=== PATIENT | male | born 1950 | race Caucasian/White ===

== ENCOUNTER 2025-04-05 10:32 | Outpatient (CLI) | payer OTHER, SELFPAY ==
--- NOTE | 2025-04-05 10:38 | MR_ITS ---
WS: [id number] MRI RIGHT SHOULDER HISTORY: R SHOULDER PAIN RESTRICTED MOVEMENT WITH POPPING COMPARISON: None available. TECHNIQUE: Multiplanar sequences of the shoulder joint are submitted. Moderate AC joint arthropathy. There is a small amount of fluid in the central ligament. Small osteophytes of the distal clavicle. There is mild encroachment upon the supraspinatus muscle. Small amount of fluid in the subacromial and subdeltoid bursa. Enthesopathy from the distal acromion with moderate subacromial impingement upon the distal supraspinatus. No os acromion. Normal position of the biceps tendon. Mild narrowing of the glenohumeral joint. No fractures or marrow edema in the humeral head or glenoid. No rotator cuff muscle atrophy or edema. There is soft tissue contusion and edema involving the distal supraspinatus muscle and the closely associated biceps tendon through the rotator cuff interval. Coracohumeral ligament appears intact. Small tear involving the articular surface of the distal supraspinatus tendon. Deep to the tear is a very tiny, 5 mm osteochondral lesion in the humeral head. Additional tendinopathy in the supraspinatus tendon in direct contact with the subacromial impingement. Mild tendinopathy in the distal subscapularis tendon. Infraspinatus tendon is intact. MR/MR shoulder RT wo con* [id number] IMPRESSION: 1. Moderate AC joint arthritis. 2. Moderate subacromial impingement upon the distal supraspinatus tendon. 3. Tendinopathy in the supraspinatus tendon associated with the subacromial im pingement. 4. Tiny distal articular surface tear of the supraspinatus tendon with an asso ciated osteochondral lesion. 5. Biceps tendon remains in the bicipital groove. The biceps tendon extending through the rotator cuff interval with increased signal and poorly visualized. There is adjacent soft tissue injury involving the supraspinatus muscle. This i s probably the result of prior trauma. 6. Tendinopathy distal subscapularis tendon.
== END 2025-04-05 10:33 | disposition home or self-care (01) ==
LOC: RAD 10:34
PROVIDERS: PCP Family Medicine; Visit Provider Nurse Practitioner Family
DX: M25.511 Pain in right shoulder (principal)
CPT/HCPCS: 73221

== ENCOUNTER → 2025-04-27 07:46 | Outpatient (BNVA) | payer MEDICARE, OTHER, SELFPAY | PROVIDERS: Visit Provider Student in an Organized Health Care Education/Training Program | DX: Z12.11 Encounter for screening for malignant neoplasm of colon (principal); R03.0 Elevated blood-pressure reading, without diagnosis of hypertension | CPT/HCPCS: 99204 ==

== ENCOUNTER 2025-05-02 05:54 | Day surgery (SDC) | payer MEDICARE, OTHER, SELFPAY ==
[2025-05-02 06:09] VITALS: BP 138/81; PULSE 86; RESP 18; TEMP 36.1; O2SAT 97; BMI 26.0
--- NOTE | 2025-05-02 06:43 | ANES.PREANE2 ---
Pre-Anesthetic Assessment Height/Weight: Height 1.83 m Weight 87.09 kg Temp Pulse Resp BP Pulse Ox O2 Del Method 97 F L 86 18 138/81 97 Room Air 05/02/25 06:09 05/02/25 06:09 05/02/25 06:09 05/02/25 06:09 05/02/25 06:09 05/02/25 06:09 Preop Diagnosis: screening Operation Date: 05/02/25 07:00 Proposed Procedures p Colonoscopy [id number] [id number] Z12.11(Not Applicable) - Terrance Garcia MD Familial anesthetic complications: none Was Beta Domi taken within 24 hours: N/A Was Clonidine taken within 24 hours: N/A Last intake: Intake Last Liquid Date 05/01/25 Last Liquid Time 21:00 Last Solid Date 04/30/25 Last Solid Time 16:00 Social No alcohol and No tobacco Exam alert, oriented x 3, clear to auscultation bilaterally and regular rate & rhythm Airway Submandibular: within normal limits Cervical ROM: within normal limits Mallampati: Class II Dentition: full History/ROS No significant history except as noted and No significant complaints Pulmonary None reported CV/HEM None reported None reported Hepatic None reported GI None reported Metabolic Hyperlipidemia Musc/skel None reported Gout Neuropsych None reported Anesthetic Plan ASA status: 2 Anesthesia: MAC Risk of > 500 ml blood loss (7ml/kg in children): No Medications/Allergies Home Medications ?Medication ?Instructions ?Recorded ?Confirmed ?Last Taken ?Type atorvastatin 10 mg tablet (Lipitor) 10 mg PO DAILY 04/25/25 04/27/25 05/01/25 History febuxostat 40 mg tablet (Uloric) 40 mg PO DAILY 04/25/25 04/27/25 05/01/25 History ascorbic acid (vitamin C) 1,000 mg 1,000 mg PO DAILY 04/27/25 04/27/25 05/01/25 History tablet (Vitamin C) ibuprofen 800 mg tablet 800 mg PO TID 04/27/25 04/27/25 05/01/25 History multivitamin 1 tab PO DAILY 04/27/25 04/27/25 05/01/25 History omega 2-rrk-omi-fish oil 1,000 mg 1 cap PO DAILY 04/27/25 04/27/25 05/01/25 History (120 mg-180 mg) capsule (Fish Oil) vitamin E 400 unit tablet 400 mg PO DAILY 04/27/25 04/27/25 05/01/25 History Allergies Allergy/AdvReac Type Severity Reaction Status Date / Time Tetanus Vaccines and Toxoid Allergy ALGY-Hives Verified 04/27/25 07:55 Current Medications Generic Name Dose Route Start Last Admin Trade Name Freq PRN Reason Stop Dose Admin Sodium Chloride 1,000 mls @ 15 mls/hr 05/02/25 06:09 05/02/25 06:13 Sodium Chloride 0.9% IV 05/03/25 06:08 15 mls/hr .Q24H PRN Administration COLONOSCOPY FLUIDS PFSH Anesthesia Social History Smoking and tobacco/nicotine status: never used tobacco/nicotine
--- NOTE | 2025-05-02 06:59 | W.PM.OPSUD ---
Surgery/Procedure H&P Update DATE OF PROCEDURE: May 02, 2025 DATE H&P PERFORMED: 04/27/25 H&P UPDATE INFORMATION: I have reviewed H&P completed within last 30 days, I have examined patient prior to procedure, No changes to prior documentation and Risks and benefits of the procedure reviewed PREOP DIAGNOSIS: screening PLANNED PROCEDURE: Operation Date: 05/02/25 07:00 Proposed Procedures p Colonoscopy 25957 G0121 Z12.11(Not Applicable) - Terrance Garcia MD
[2025-05-02 07:27] VITALS: BP 91/60; PULSE 72; RESP 18; TEMP 36.3; O2SAT 94
[2025-05-02 07:33] VITALS: BP 94/66; PULSE 74; RESP 18; O2SAT 94
[2025-05-02 07:42] VITALS: BP 115/69; PULSE 63; RESP 18; O2SAT 94
--- NOTE | 2025-05-02 07:54 | ANE.PACU2 ---
Inpatient post-anesthesia follow up: Airway intact: Yes Vital signs: Temperature 97.4 F Pulse Rate 63 Respiratory Rate 18 Blood Pressure 115/69 Pulse Oximetry 94 Oxygen Delivery Me thod Room Air Oxygen Flow Rate Fraction of Inspir ed Oxygen Hydration adequate: Yes Nausea and vomiting: No Pain level: 1 Mental status: Baseline
== END 2025-05-02 07:54 | disposition home or self-care (01) ==
PROVIDERS: PCP Family Medicine; Visit Provider Student in an Organized Health Care Education/Training Program
PROC: 0DJD8ZZ Inspection of Lower Intestinal Tract, Via Natural or Artificial Opening Endoscopic (ICD-10-PCS; CPT 45378; principal; 2025-05-02 07:00)
DX: Z12.11 Encounter for screening for malignant neoplasm of colon (principal); K57.30 Diverticulosis of large intestine without perforation or abscess without bleeding; D12.2 Benign neoplasm of ascending colon; E78.5 Hyperlipidemia, unspecified
CPT/HCPCS: 45385; 88305; J2704; J7030

== ENCOUNTER 2025-05-15 07:26 | Outpatient (RCR) | payer MEDICARE, OTHER, SELFPAY | END 2025-05-26 23:59 | disposition home or self-care (01) | LOC: SPT 07:26 | PROVIDERS: PCP Family Medicine; Visit Provider Orthopaedic Surgery | DX: M25.511 Pain in right shoulder (principal) | CPT/HCPCS: 97110; 97161 ==

== ENCOUNTER → 2025-05-22 08:39 | Outpatient (BNVA) | payer MEDICARE, OTHER, SELFPAY | PROVIDERS: PCP Family Medicine; Visit Provider Orthopaedic Surgery | DX: M19.011 Primary osteoarthritis, right shoulder (principal); M75.41 Impingement syndrome of right shoulder; M67.813 Other specified disorders of tendon, right shoulder | CPT/HCPCS: 99213 ==

== ENCOUNTER → 2025-05-25 13:24 | Outpatient (BNVA) | payer MEDICARE, OTHER, SELFPAY | PROVIDERS: PCP Family Medicine; Visit Provider Student in an Organized Health Care Education/Training Program | DX: Z09 Encounter for follow-up examination after completed treatment for conditions other than malignant neoplasm (principal) | CPT/HCPCS: 99213 ==

== ENCOUNTER 2025-06-01 05:44 | Day surgery (SDC) | payer MEDICARE, OTHER, SELFPAY ==
[2025-06-01] VITALS (7 sets, daily range): BP systolic 114–147; BP diastolic 77–106; PULSE 64–70; RESP 15–18; TEMP 36.1–36.2; O2SAT 93–100; BMI 25.7
--- NOTE | 2025-06-01 06:17 | ANES.PREANE2 ---
Pre-Anesthetic Assessment Height/Weight: Height 6 ft Weight 190 lb Temp Pulse Resp BP Pulse Ox O2 Del Method 97.2 F L 65 18 147/106 93 Room Air 06/01/25 06:06 06/01/25 06:06 06/01/25 06:06 06/01/25 06:06 06/01/25 06:06 06/01/25 06:06 Preop Diagnosis: Right shoulder pain Operation Date: 06/01/25 07:00 Proposed Procedures p RIGHT Shoulder Arthroscopy(Right) - Gabino Angela MD s Open Rotator Cuff Repair Shoulder(Right) - Gabino Angela MD Was Beta Domi taken within 24 hours: N/A Was Clonidine taken within 24 hours: N/A Social No alcohol and No tobacco Exam alert, oriented x 3, clear to auscultation bilaterally and regular rate & rhythm Airway Submandibular: within normal limits Cervical ROM: within normal limits Mallampati: Class II Dentition: full Anesthetic Plan ASA status: 2 Anesthesia: General and Regional (specify below) Other: No prior issues with anesthesia NPO since yesterday evening Denies any cardiac issues, preop BP 147/106 No pulmonary problems Active individual METs greater than 4 Plan for GETA with peripheral nerve block Medications/Allergies Home Medications ?Medication ?Instructions ?Recorded ?Confirmed ?Last Taken ?Type atorvastatin 10 mg tablet (Lipitor) 10 mg PO DAILY 04/25/25 05/31/25 05/30/25 History febuxostat 40 mg tablet (Uloric) 40 mg PO DAILY 04/25/25 05/31/25 05/30/25 History ascorbic acid (vitamin C) 1,000 mg 1,000 mg PO DAILY 04/27/25 05/31/25 05/22/25 History tablet (Vitamin C) ibuprofen 800 mg tablet 800 mg PO TID 04/27/25 05/31/25 05/19/25 History multivitamin 1 tab PO DAILY 04/27/25 05/31/25 05/22/25 History omega 3-soc-gzy-fish oil 1,000 mg 1 cap PO DAILY 04/27/25 05/31/25 05/22/25 History (120 mg-180 mg) capsule (Fish Oil) vitamin E 400 unit tablet 400 mg PO DAILY 04/27/25 05/31/25 05/22/25 History Allergies Allergy/AdvReac Type Severity Reaction Status Date / Time Tetanus Vaccines and Toxoid Allergy ALGY-Hives Verified 05/31/25 14:24 [facility] Anesthesia Social History Smoking and tobacco/nicotine status: never used tobacco/nicotine
--- NOTE | 2025-06-01 06:52 | W.PM.OPSUD ---
Surgery/Procedure H&P Update DATE OF PROCEDURE: June 01, 2025 DATE H&P PERFORMED: 05/25/25 H&P UPDATE INFORMATION: I have reviewed H&P completed within last 30 days, I have examined patient prior to procedure and No changes to prior documentation PREOP DIAGNOSIS: Right shoulder pain with impingement, possible rotator cuff tear PLANNED PROCEDURE: Operation Date: 06/01/25 07:00 Proposed Procedures p RIGHT Shoulder Arthroscopy(Right) - Gabino Angela MD s Open Rotator Cuff Repair Shoulder(Right) - Gabino Angela MD
[2025-06-01] MEDS: ceFAZolin 2,000 mg SDV 2000 MG IVP (07:00)
--- NOTE | 2025-06-01 08:13 | ANES.PROC ---
Anesthesia Procedures Procedure/Date: 06/01/25 Right interscalene peripheral nerve block for postoperative pain control Nerve Block ^: Nerve Block 1: Main Anesthesia: other (Fentanyl 100 mcg) Time Out Performed: Yes Consent: requested by attending/covering physician and from patient Laterality: Right Nerve block location: interscalene Anesthesia monitors applied: pulse oximetry, EKG, BP cuff and oxygen Nerve block position: supine Anesthetic Used: ropivicaine 0.5% Amount of anesthesia used (mL): 30 Ultrasound used to: recognize landmarks Nerve Stimulator Used?: Yes Interscalene/Femoral BLK: other needle (pjunk 4inch) Injection: neg aspiration of heme Patient Tolerated Procedure: well Complications: none Additional Comments: Decadron 4 mg added to block
--- NOTE | 2025-06-01 09:08 | P.OP_ITS ---
Operative Report Date of procedure: June 01, 2025 Surgeon: Gabino Angela MD Procedure: Preoperative diagnosis: Internal derangement of the right shoulder Postoperative diagnosis: Torn anterior labrum with degenerative tearing superior labrum right shoulder, torn rotator cuff, impingement of the acromion, hypertrophic bursa, multiple adhesions Procedure: Diagnostic right shoulder arthroscopy with labral repair and debridement of the labrum, mini open rotator cuff repair with acromioplasty, bursectomy, lysis of adhesions Surgeon: Gabino Angela MD Stainless Steel Finisher: MILTON Mishra's assistance was necessary for positioning the patient, assistance during the procedure, wound closure, placement of the abduction pillow and sling Anesthesia: General With preoperative scalene block EBL: 50 cc Indications: Andrew is a 75-year-old white male was seen in the orthopedic clinic for debilitating right shoulder pain. He been having problems over the course of the last several months with increasing pain problems and difficulties with this. He had no specific injury. Subsequent MRI did demonstrate some changes of the supraspinatus tendon of his shoulder as well as impingement of the acromion and some AC joint degeneration. However at that time it did not appear that he needed surgical intervention. We attempted conservative measures for several months with no improvement. Subsequently he was offered to diagnostic shoulder arthroscopy with all indicated procedures. More likely needed decompression due to impingement of the acromion. Possible repair of the rotator cuff. All risk benefits treatment alternatives were discussed with him and he was agreeable to this at this time. Procedure: After obtaining consent patient had preoperative scalene block administered in preop holding area. Patient was then taken to the operating room placed in the op table supine position general anesthetic administered. Once good anesthesia achieved patient was placed up in a modified beachchair position on a regular surgical table. Shoulder bump was placed behind his right scapula to raise his shoulder off the table. Right shoulder and arm were prepped and draped usual fashion. After surgical timeout standard posterior portal was made #11 blade and camera cannulas placed within the glenohumeral joint line. Anterior working portal was also plated and inferior to the anterior clavicle. Evaluation the area found that there is a tear where the labrum needed approxi-1 cm in length just inferior to the biceps tendon. There is fraying and tearing along this anterior labrum as well as long superior labrum. All these areas were debrided down to stable cartilaginous base mechanical shaver. Subsequently to juggernaut 1.5 mm suture anchors were placed in the glenoid and the labrum was sutured back to its original insertion point. At this point it had been noted there was a small tear in the rotator cuff just lateral to the biceps hiatus. Biceps tendon was in good repair. Arthroscopy was abandoned at this point and mini open procedure was started. Longitudinal incision was made off the anterior lateral aspect of the acromion. Sharp dissected gone down subcutaneous tissues electrocautery used for hemostasis. Deltoid was removed from the anterior portion of the acromion with electrocautery. By digital palpation is found to be very tight and impinging upon the rotator cuff. Therefore using a microsagittal saw acromioplasty was undertaken and bone fragment removed without any difficulties. Adequate decompression was achieved. Hypertrophic bursa was in the area and had to be d ebrided with electrocautery. Digital palpation lysed many adhesions within the subacromial space. Small tear of the rotator cuff was identified at the level of the biceps tendon posteriorly about 1 cm. This area was freshened with a #15 blade. Subsequently single 2.9 juggernaut suture anchor was placed through drill hole at the footprint of the rotator cuff. Rotator cuff was repaired back with the double-armed sutures in a horizontal mattress suture fashion as well as some [id number] sutures. Once adequate repair had been achieved shoulders washed sterile rogation. Retractors were removed and deltoid is repaired with 0 Vicryl [id number] sutures. Subcutaneous was reapproximated 2-0 Vicryl interrupted sutures and skin was closed with running 3-0 Prolene sutures. Wounds are cleaned and dried with Xeroform gauze sterile gauze dressing ABDs adhesive tape. Patient placed in abduction pillow sling. Patient was awakened transferred cover in stable condition
--- NOTE | 2025-06-02 10:20 | ANE.PACU2 ---
Inpatient post-anesthesia follow up: Airway intact: Yes Vital signs: Temperature 97.0 F Pulse Rate 64 Respiratory Rate 17 Blood Pressure 129/82 Pulse Oximetry 95 Oxygen Delivery Me thod Room Air Oxygen Flow Rate Fraction of Inspir ed Oxygen Hydration adequate: Yes Nausea and vomiting: No Pain level: 1 Mental status: Baseline
== END 2025-06-01 10:20 | disposition home or self-care (01) ==
PROVIDERS: PCP Family Medicine; Visit Provider Orthopaedic Surgery
PROC: (CPT 29805; principal; 2025-06-01 07:00)
PROC: (CPT 23412; 2025-06-01 07:00)
PROC: (CPT 29807; 2025-06-01 07:00)
PROC: (CPT 23130; 2025-06-01 07:00)
DX: M24.811 Other specific joint derangements of right shoulder, not elsewhere classified (principal); S43.431A Superior glenoid labrum lesion of right shoulder, initial encounter; M75.101 Unspecified rotator cuff tear or rupture of right shoulder, not specified as traumatic; X58.XXXA Exposure to other specified factors, initial encounter
CPT/HCPCS: 23412; 23130; 64415; C1713; J0690; J2371; J2405; J2704; J3010; J3490; J7030; J9999

== ENCOUNTER → 2025-06-15 10:13 | Outpatient (BNVA) | payer MEDICARE, OTHER, SELFPAY | PROVIDERS: PCP Family Medicine; Visit Provider Orthopaedic Surgery | DX: Z98.890 Other specified postprocedural states (principal) | CPT/HCPCS: 99024 ==

== ENCOUNTER → 2025-06-26 10:51 | Outpatient (BNVA) | payer MEDICARE, OTHER, SELFPAY | PROVIDERS: PCP Family Medicine; Visit Provider Orthopaedic Surgery | DX: Z98.890 Other specified postprocedural states (principal) | CPT/HCPCS: 99024 ==

== ENCOUNTER → 2025-07-24 09:39 | Outpatient (BNVA) | payer MEDICARE, OTHER, SELFPAY | PROVIDERS: PCP Family Medicine; Visit Provider Orthopaedic Surgery | DX: Z98.890 Other specified postprocedural states (principal) | CPT/HCPCS: 99024 ==